=== PATIENT | female | born 1990 | race Two or more races ===

== ENCOUNTER 2018-10-19 21:21 | Emergency (ER) | payer OTHER ==
[~2018-10-19] VITALS: Ht 157.5 cm; Wt 85.2 kg
[~2018-10-19 21:21] MED LIST: ACET-1757 PO; CLIN300C8 PO; HYDR-3237 PO
[2018-10-19] MEDS ORDERED: LIDOCAINE-MPF 1%, 5ML ONE ×2 (21:44→21:58)
[2018-10-19] MEDS ORDERED: ONDANSETRON ODT 4 MG ONE ×2 (21:44→23:36)
[2018-10-19] MEDS ORDERED: HYDROmorphone 2 MG/ML, 1ML ONE (21:44)
[2018-10-19] MEDS ORDERED: CLINDAMYCIN 300 MG CAPSULE ONE (21:44)
[2018-10-19] MEDS ORDERED: IBUPROFEN 600 MG TABLET ONE (21:45)
[2018-10-19] MEDS ORDERED: CLINDAMYCIN 300 MG CAPSULE PO ONE (22:00)
[2018-10-19] MEDS ORDERED: ONDANSETRON ODT 4 MG PO ONE (22:00)
[2018-10-19] MEDS ORDERED: LIDOCAINE 2%, 20ML SQ ONE (22:00)
[2018-10-19] MEDS ORDERED: HYDROmorphone 2 MG/ML, 1ML IM ONE (22:00)
[2018-10-19] MEDS ORDERED: IBUPROFEN 600 MG TABLET PO ONE (22:00)
--- NOTE | 2018-10-19 22:13 | NUR ---
INCISION AND DRAINING WAS DONE BY DR DHRUV HERNANDEZ STABLE GIVEN DILAUDID IM SHOT WITH ORAL ABX PT TOLERATED VERY WELL
--- NOTE | 2018-10-19 23:34 | NUR ---
GIVEN DC INSTRUCITON WITH NARCOTIC INFORMATION PT UNDERSTOOD PT WILL COME BACK IN TWO DAYS FOR RECHECK WOUND
--- NOTE | 2018-10-19 23:38 | NUR ---
GIVEN ZOFRAN PO AFTER GIVEN DC INSTRUCTION PT WAS WHEELED OUT BY FRIEND FOR CHECK OUT
[2018-10-19 23:39] VITALS: BP 118/80
[2018-10-20] MEDS ORDERED: ONDANSETRON ODT 4 MG PO ONE
== END 2018-10-19 23:41 | disposition home or self-care (01) ==
LOC: ED 23:00
DX: L02.416 Cutaneous abscess of left lower limb (principal)
CPT/HCPCS: 10060; 96372; 99284; J1170; J3490; Q0162

== ENCOUNTER 2018-10-22 11:30 | Emergency (ER) | payer OTHER ==
[~2018-10-22] VITALS: Ht 157.5 cm; Wt 83.2 kg
[2018-10-22 14:35] VITALS: BP 118/59
== END 2018-10-22 14:47 | disposition home or self-care (01) ==
LOC: ED 14:34
DX: L03.116 Cellulitis of left lower limb (principal); L02.416 Cutaneous abscess of left lower limb
CPT/HCPCS: 90471; 90715; 93971; 96372; 99284; J0690

== ENCOUNTER 2018-10-23 06:05 | Emergency (ER) | payer OTHER ==
[~2018-10-23] VITALS: Ht 160 cm; Wt 84.1 kg
[2018-10-23 06:47] VITALS: BP 128/74
== END 2018-10-23 06:53 | disposition home or self-care (01) ==
LOC: ED 06:38
DX: L03.116 Cellulitis of left lower limb (principal)
CPT/HCPCS: 99281